=== PATIENT | male | born 1965 | race Caucasian/White ===

== ENCOUNTER 2018-06-05 10:09 | Emergency (ER) | payer MEDICAID ==
[~2018-06-05] VITALS: Ht 175.3 cm; Wt 97.7 kg
[2018-06-05 10:12] VITALS: BP 155/97
[2018-06-05] MEDS ORDERED: IBUPROFEN 600 MG TABLET PO ONE (11:15)
[2018-06-05] MEDS ORDERED: AMOX TR/POT CLAV 875 MG/125 MG TABLET PO ONE (11:15)
== END 2018-06-05 11:37 | disposition home or self-care (01) ==
LOC: EDUNIT# 10:09 → EMS 10:10
DX: H00.034 Abscess of left upper eyelid (principal); F17.210 Nicotine dependence, cigarettes, uncomplicated
CPT/HCPCS: 99283